=== PATIENT | female | born 1960 | race Caucasian/White ===

== ENCOUNTER 2016-06-22 06:56 | Day surgery (SDC) | payer MEDICARE, OTHER ==
[2016-06-22] MEDS ORDERED: LACTATED RINGERS 1,000 ML ONE ×2 (07:14→09:31)
[2016-06-22] MEDS ORDERED: IV START KIT ONE (07:14)
[2016-06-22] MEDS ORDERED: CEFUROXIME SODIUM 1.5 GRAM 1.5 G in Premix (Water) 50 ml 1 EACH IV PRN (07:26)
[2016-06-22] MEDS ORDERED: LIDOCAINE 1% 2 ML VIAL ID PRN (07:26)
[2016-06-22] MEDS ORDERED: METRONIDAZOLE 500 MG/NS 100 ML 500 MG in Premix (NS) 100 ml 1 EACH IV PRN (07:26)
[2016-06-22] MEDS ORDERED: LACTATED RINGERS 1,000 ML IV SCH ×3 (07:26→09:49)
[2016-06-22] MEDS ORDERED: CEFUROXIME SODIUM 1.5 GRAM 50 ML IV ONE (07:29)
[2016-06-22] MEDS ORDERED: METRONIDAZOLE 500 MG/NS 100 ML 100 ML IV ONE (07:29)
[2016-06-22] MEDS ORDERED: LIDOCAINE 1%/EPI 1:100,000 (MULTI DOSE) 30 ML VIAL ONE (08:16)
[2016-06-22] MEDS ORDERED: FENTANYL 100 MCG/2 ML VIAL ONE (08:25)
[2016-06-22] MEDS ORDERED: NALOXONE HCL 0.4 MG/ML VIAL IV PRN (08:38)
[2016-06-22] MEDS ORDERED: LABETALOL HCL 5 MG/ML 20ML VIAL IV PRN (08:38)
[2016-06-22] MEDS ORDERED: PROMETHAZINE HCL 25 MG/ML VIAL IM PRN (08:38)
[2016-06-22] MEDS ORDERED: MEPERIDINE 25 MG/ML SYRINGE IV PRN (08:38)
[2016-06-22] MEDS ORDERED: ONDANSETRON 4 MG/2ML 2 ML VIAL IV PRN ×2 (08:38→09:49)
[2016-06-22] MEDS ORDERED: ATROPINE SULFATE 0.4 MG/1 ML VIAL IV PRN (08:38)
[2016-06-22] MEDS ORDERED: METOCLOPRAMIDE HCL 5 MG/ML 2ML VIAL ONE (08:49)
[2016-06-22] MEDS ORDERED: PROPOFOL 20 ML IV ONE (08:49)
[2016-06-22] MEDS ORDERED: ROCURONIUM BROMIDE 10 MG/ML DOSE IV ONE (08:49)
[2016-06-22] MEDS ORDERED: HYDROMORPHONE HCL 2 MG/ML SYRINGE ONE (08:49)
[2016-06-22] MEDS ORDERED: KETOROLAC TROMETHAMINE 30 MG/ML 1 ML VIAL ONE (08:49)
[2016-06-22] MEDS ORDERED: GLYCOPYRROLATE 0.2 MG/ML 1ML VIAL ONE (09:11)
[2016-06-22] MEDS ORDERED: NEOSTIGMINE METHYLSULFATE 1 MG/ML DOSE ONE (09:11)
[2016-06-22] MEDS ORDERED: HYDROMORPHONE HCL 1 MG/ML SYRINGE ONE (09:22)
[2016-06-22] MEDS ORDERED: MEPERIDINE 25 MG/ML SYRINGE ONE (09:23)
[2016-06-22] MEDS: HYDROMORPHONE HCL 1 MG/ML SYRINGE IV PRN ×4 (09:23→09:48)
--- NOTE | 2016-06-22 09:28 | PCMON ---
Date of Procedure: 06/22/16 PREOPERATIVE DIAGNOSIS Chronic Cholecystitis with cholelithiasis no obstruction. POSTOPERATIVE DIAGNOSIS same. PROCEDURE PERFORMED Laparoscopic cholecystectomy. COMPLICATIONS None. OPERATIVE FINDINGS signs of chronic cholecystitis. ESTIMATED BLOOD LOSS 10 mL. BRIEF INDICATIONS SALIMA SMITH is a 56 year old F patient with symptoms consistent with gallbladder disease and was admitted for consideration of laparoscopic cholecystectomy. The preoperative liver function tests were normal, and RUQ-focused ultrasound demonstrated cholelithiasis. Risks and benefits of surgery were explained to the patient, including the 1: 200 risk of common bile duct injury and the possible need for conversion to open technique (5%). The patient declined the possible alternatives and agreed to proceed with surgery, providing informed consent. DESCRIPTION OF PROCEDURE The patient was brought to the operating room and placed supine on the operating room table. A surgical briefing was held to verify the correct patient and correct procedure. A general anesthetic was induced uneventfully, followed by the administration of a subcutaneous heparin injection and perioperative antibiotics. Pneumatic compression stockings were placed on the legs and powered on. The abdomen was prepped and draped in a sterile fashion. A 5-mm direct optical view trocar was used to enter to the right of the umbilicus under direct vision of the abdominal wall layers. Once inside the abdominal cavity, a pneumoperitoneum was created. No injury to underlying structures occurred with placement of this trocar. Once inside the abdominal cavity, an additional 11-mm port was placed in the upper midline just below the xiphisternum. 2 additional 5-mm port was placed in the RUQ. All trocars were placed under direct visualization. There was no injury to underlying structures with placement of these trocars. Once inside the abdominal cavity and the pneumoperitoneum was created, the gallbladder was retracted over the liver. We were able to identify inflammation around the gallbladder, and there were stones in Emory pouch. The gallbladder was then grasped by Emory pouch and retracted up away from the common bile duct. The dissection was initiated with hook electrocautery on the posterior peritoneum covering of the hepatobiliary triangle, followed by the medical border of the gallbladder in the region of Calot triangle. We identified the lymph node of Calot which was not removed during the dissection. We continued our dissection, mobilizing lymph node off the cystic artery. As the triangle was developed, the cystic artery was identified. An intraoperative cholangiogram was not performed. The cystic duct and artery were both identified and exposed. A critical view of safety was obtained by clearing all the tissue between the underside of the infundibulum and the liver so the cystic duct and the artery could be clearly seen going into the gallbladder. The triangle of Calot had no aberrant structures or additional anatomy present within the triangle between the liver bed, the cystic duct and the region of the gallbladder. Once the critical view was demonstrated and there was no evidence of additional structures, we turned our attention to clipping the cystic artery and duct. The cystic artery was clipped twice proximally, once distally and transected. This was confirmed as the artery with pulsatile beating in the region of the clips once transected. Once the artery was taken, we turned our attention to clipping the cystic duct. The cystic duct was clipped with 2 to 3 clips proximally and once distally. This was then transected, and we then removed the gallbladder from the gallbladder bed. No injury to the underlying liver occurred with removal of the gallbladder, there was no evidence of bile leak or bile duct injury, and the gallbladder was not perforated with no spillage of stones prior to removal. The gallbladder was then placed in an Endocatch bag and removed through the 11-mm trocar. Once the trocar was removed, we closed the fascia with a Jose Rafael Sachin and 0 vicryl. The pneumoperitoneum was released, and the trocars were removed under direct visualization. The rest of the port sites were removed with 4-0 monocryl and steri strips were applied. The patient was taken to recovery in stable condition. All needle instrument and sponge counts were correct at the end of the case.
[2016-06-22] MEDS ORDERED: HYDROMORPHONE HCL 1 MG/ML SYRINGE IV PRN (09:49)
[2016-06-22] MEDS ORDERED: OXYCODONE/ACETAMINOPHEN 5/325 MG TABLET PO PRN (09:49)
[2016-06-22] MEDS ORDERED: OXYCODONE/ACETAMINOPHEN 5/325 MG TABLET ONE (10:25)
--- NOTE | 2016-06-24 15:22 | SURGPATH ---
[facility] [address] [place] [id number] Patient Name: SALIMA SMITH MR#: [id number] : 1960 Gender: F Specimen #: [id number] Collected: 06/22/2016 Received: 06/23/2016 Reported: 06/24/2016 Submitting Phys: MIKE BEASLEY Copy To Phys: JOEL MCKEON [facility] Clinical History / Pre-Operative Diagnosis: CHOLELITHIASIS WITH CHRONIC CHOLECYSTITIS WITHOUT OBSTRUCTION Specimen Source / Surgical Procedure Performed: GALLBLADDER Interpretation: GALLBLADDER, CHOLECYSTECTOMY: - CHRONIC CALCULOUS CHOLECYSTITIS - MILD CHOLESTEROLOSIS Electronically Signed Out Randi Akers M.D. Gross Description: The specimen is received in a formalin filled container labeled with the patient's name and "gallbladder". An intact and engorged gallbladder is 8.0 x 3.0 cm. The serosa is smooth and loving-miles. The wall averages 0.2 cm. The mucosa is green miles and velvety with scattered slightly raised yellow flecks. There is no nodule or induration. The lumen contains a copious amount of thick dark green bile and multiple nodular yellow calculi up to 1 cm. Three field sales representative sections are submitted in one cassette including a cross section through the cystic duct surgical margin, a central cross section and a longitudinal section through the fundus. Prabhu Cordero. Microscopic Description: Normal thickness gallbladder is seen with Rokitansky-Aschoff sinuses. No acute inflammation is seen. No dysplasia or carcinoma is seen. Some foamy macrophages are seen in the superficial lamina propria. 1: [id number] K80.18
== END 2016-06-22 10:45 | disposition home or self-care (01) ==
LOC: SDC 06:56
PROVIDERS: ATTEND Surgery
PROC: 0FT44ZZ Resection of Gallbladder, Percutaneous Endoscopic Approach (ICD-10-PCS; principal; 2016-06-22)
DX: K80.10 Calculus of gallbladder with chronic cholecystitis without obstruction (principal); G89.4 Chronic pain syndrome; Z86.010 Personal history of colon polyps; D53.9 Nutritional anemia, unspecified; H90.2 Conductive hearing loss, unspecified; F32.9 Major depressive disorder, single episode, unspecified; F41.9 Anxiety disorder, unspecified; F17.210 Nicotine dependence, cigarettes, uncomplicated; Z88.5 Allergy status to narcotic agent; Z88.8 Allergy status to other drugs, medicaments and biological substances; Z80.0 Family history of malignant neoplasm of digestive organs
CPT/HCPCS: 47562; J2175; J1170 ×2; J3010; A9270; J2765; J1885; J2001; J2405; J7120 ×2; J7030; J0697